=== PATIENT | male | born 1985 | race American Indian/Alaskan Native ===

== ENCOUNTER 2019-10-28 11:30 | Emergency (ER) | payer SELFPAY ==
--- NOTE | 2019-10-28 12:37 | Emergency Department Report ---
Chief Complaint: Medical Clearance Stated Complaint: FEVER Time Seen by Provider: 10/28/19 12:28 - HPI History of Present Illness: This is a pleasant 34-year-old male who presents to the emergency department the chief complaint that his job sent him home because he had an elevated temperature. He reports his job did a temporal temperature and it was 100.5. He denies any symptoms. He specifically denies fever, chills, night sweats, headache, dizziness, blurry vision, nausea, vomiting, diarrhea, chest pain, abdominal pain, cough, ear pain, sore throat, loss of taste or smell or any other associated symptoms. He denies any known sick contacts. - ROS Review of Systems: See HPI - Exam Vital Signs: Vital Signs 10/28/19 11:51 Temperature 98.3 F Pulse Rate 94 H Respiratory 18 Rate Blood Pressure 140/85 O2 Sat by Pulse 97 Oximetry Physical Exam: GENERAL APPEARANCE: Well-developed, well-nourished, no acute distress HEENT: Normocephalic and atraumatic. No scleral icterus. Pupils are equal, round, and reactive to light and accommodation. No conjunctival injection is noted. Oropharynx is clear. Mouth revealed good dentition, no lesions. Tympanic membranes are clear. NECK: Supple. Trachea is midline. No evidence of thyroid enlargement. No lymphadenopathy or tenderness. CHEST: Symmetric. Nontender to palpation. LUNGS: Breath sounds are equal and clear bilaterally. No wheezes, rhonchi, or rales. HEART: Regular rate and rhythm with normal S1 and S2. No murmurs, gallops, or rubs. BREASTS: Symmetrical. No skin or nipple retractions. No nipple discharges or masses. ABDOMEN: Soft, flat, and benign. No mass, tenderness, guarding, or rebound. No organomegaly or hernia. Bowel sounds are present. No CVA tenderness or flank mass. GENITOURINARY: Deferred RECTAL: Deferred EXTREMITIES: No cyanosis, clubbing, or edema. No lower extreme edema, negative Homans sign bilaterally NEUROLOGIC: No focal sensory or motor deficits are noted. Gait is normal. Cranial nerves II through XII are intact. Deep tendon reflexes are intact. PSYCHIATRIC: The patient is awake, alert, and oriented x3. Recent and remote memory is intact. Appropriate mood and affect. SKIN: Warm, dry, and well perfused. Good turgor. No lesions, nodules or rashes are noted. No onychomycosis. LYMPHATICS: No cervical, axillary, or groin adenopathy is noted. MSE screening note: Focused history and physical exam performed. Due to findings the following was ordered: Patient is nontoxic in no acute distress. Vitals are stable. He is PERC negative and a low risk by Wells criteria. Patient was asymptomatic with no fever in the emergency department. He did understand that he was not tested for COVID-19 and that he must follow the CDC guidelines and his works guidelines for any fever. Did educate him that if he does have another fever he should socially distance and follow-up with his primary care doctor for testing as needed. He agreed with this. ED Medical Decision Making - Medical Decision Making Patient nontoxic in no acute distress. Will discharge in stable condition. He was afebrile and has no symptoms at this time. - Differential Diagnosis COVID-19, pneumonia, influenza ED Disposition for MSE Clinical Impression: Encounter for medical screening examination Disposition: MED SCREENING EXAM-LEFT Is pt being admited?: No Condition: Stable Instructions: Fever in Adults (ED) Referrals: [facility] [Provider Group] - 3-5 Days Forms: Work/School Release Form(ED) Time of Disposition: 12:37
[2019-10-28 12:51] VITALS: BP 131/84
== END 2019-10-28 12:52 | disposition left against medical advice (07) ==
LOC: ED 11:30
DX: R50.9 Fever, unspecified (principal); Z53.21 Procedure and treatment not carried out due to patient leaving prior to being seen by health care provider